=== PATIENT | male | born 1955 | race Caucasian/White ===

== ENCOUNTER 2017-01-11 07:20 | Day surgery (SDC) | payer MEDICAID ==
[~2017-01-11 07:20] MED LIST: Midazolam 1 MG/ML 2 ML SDV ONE; Propofol 200 MG/20 ML SDV ONE; fentaNYL 100 MCG/2 ML SDV ONE
[2017-01-11] MEDS ORDERED: Lidocaine 1% 4 ML ONE (08:14)
[2017-01-11] MEDS ORDERED: Sodium Chloride 0.9% 1,000 ML IV SCH (08:15)
--- NOTE | 2017-01-11 11:52 | OR ---
DATE OF PROCEDURE: 01/11/2017 PROCEDURE: 1. Esophagogastroduodenoscopy. 2. Colonoscopy. FINDINGS: 1. Inflammation at the GE junction consistent with reflux disease. 2. Mass at 9 cm highly consistent with rectal cancer. 3. Near obstruction approximately decreased in 90% of luminal circumference due to the aforementioned tumor. COMPLICATIONS: None. CORD CUTTER: None. ANESTHESIA: MAC. RISKS: Risks, benefits, alternatives, limitations including, but not limited to infection, bleeding, and perforation were explained to the patient and they wished to proceed. PREOPERATIVE DIAGNOSIS: Gastrointestinal bleeding. POSTOPERATIVE DIAGNOSIS: Gastrointestinal bleeding. PROCEDURE IN DETAIL: The patient was placed in the left lateral decubitus position. The EGD scope was introduced and advanced atraumatically to the second part of the duodenum. The scope was brought back into the stomach and retroflexed. The patient did have some reflux at the GE junction, which was biopsied using cold biopsy forceps. No other abnormalities were noted with respect to the EGD. The colonoscopy was then performed next. A digital rectal exam was performed. It did not show any abnormalities. The scope was introduced and at exactly 9 cm, which was measured 3 times, from the anal verge, he was was found to have a near obstructing mass. This was biopsied x8 using cold biopsy forceps. Using gentle advancement, the scope was not able to be advanced past the mass. No other abnormalities were noted. Tattooing ink was then tattooed in three quadrants slightly distal to the lesion. The procedure was then terminated. The patient tolerated the procedure well. Pj Lin MD /[id number]
[2017-01-11 12:14] VITALS: BP 140/91
== END 2017-01-11 10:30 | disposition home or self-care (01) ==
LOC: JP.SDS 07:20
PROVIDERS: ATTEND Surgery
DX: K21.0 Gastro-esophageal reflux disease with esophagitis (principal); C18.9 Malignant neoplasm of colon, unspecified
CPT/HCPCS: 43239; 45380; 88305; J2250; J2704; J3010; J7040